=== PATIENT | female | born 1990 | race Two or more races ===

== ENCOUNTER 2017-02-11 05:50 | Day surgery (SDC) | payer BC ==
[2017-02-11] VITALS (13 sets, daily range): BP systolic 95–132; BP diastolic 52–81
[~2017-02-11] VITALS: Ht 154.9 cm; Wt 50.8 kg
--- NOTE | 2017-02-11 | History and Physical Report ---
DATE OF ADMISSION: 02/11/2017 HISTORY OF PRESENT ILLNESS: This is an 26-year-old female, 0, para 0 who presented to our office in December 2016, with complaints of low abdominal pain. After several workups and exam, the patient was diagnosed with the left side ovarian cyst. Ultrasound was performed, which proved diagnosis of left side ovarian cyst, size 6.7 x 6.0 x 5.1, complex with thick irregular nicolas and septations present. Right ovarian mass was cystic. Uterus was within normal limits. Problem was discussed with the patient and necessity of surgical procedure was explained. Procedure, pelviscopy was discussed with the patient in detail. All possible complications of bleeding, infection, injury of inner organs were explained. All the patient's questions were answered and the patient signed consent for surgery. GYNECOLOGICAL HISTORY: Menarche age 12, every 28 to 30 days, last menstrual period two weeks ago normal. She denies pelvic inflammatory disease. She denies STDs. Pap smear done, class I. PREVIOUS MEDICAL HISTORY: She denies medical problems. She denies heart disease, lung disease, or liver disease. SOCIAL HISTORY: Tobacco, does not smoke. Alcohol, does not drink. HOSPITALIZATIONS: None. REVIEW OF SYSTEMS: Noncontributory besides complaints mentioned above. PHYSICAL EXAMINATION: GENERAL: A well-developed and well-nourished female, in no acute distress. VITAL SIGNS: Stable. SKIN: Normal color. No lesions. HEENT: Head, normocephalic and atraumatic. Ears, tympanic membranes intact. Eyes, pupils are reactive to light and accommodation. BREASTS: No masses. Nipples without discharge. LUNGS: Clear to percussion and auscultation. CARDIOVASCULAR: Heart rate is regular. S1 and S2. ABDOMEN: Soft and nontender. Bowel sounds present. Costovertebral angle is nontender. PELVIC: Revealed Bartholin, urethral, and Aucilla glands within normal limits. Vulva and vagina, no lesions. Cervix is closed. Uterus normal size, position, and shape. Adnexa, left adnexa with approximately 7 cm mass, tender. Right adnexa, nontender, no masses. LABORATORY DATA: Blood tests, WBC 7.6, RBC 4.5, hemoglobin 13.9. Blood type AB positive. test negative. Potassium 3.9, sodium 139. PT 11.9, PTT 26.5, INR 1.1. IMPRESSION: Left adnexal mass. PLAN: Pelviscopy. Florina Torres M.D. DR: Julio JOB#: [id number] CC:
[2017-02-11] MEDS ORDERED: NKM (06:34)
[2017-02-11] MEDS ORDERED: cefOXitin Sod 2 GM in D5W 110 ML IVPB ONE (07:00)
[2017-02-11] MEDS ORDERED: Ropivacaine 5mg/ml Vial 20ml INJ ONE (07:25)
[2017-02-11] MEDS ORDERED: Sterile Water Irrig 1000ml IRRIG ONE (07:30)
[2017-02-11] MEDS ORDERED: LR 1000ml ONE (07:30)
[2017-02-11] MEDS ORDERED: fentaNYL 100 mcg/2 mL IV ONE (07:30)
[2017-02-11] MEDS ORDERED: NS Irrig 1000ml ONE (07:30)
[2017-02-11] MEDS ORDERED: Zemuron 50mg/5ml Inj IV ONE (07:30)
[2017-02-11] MEDS ORDERED: Propofol 10mg/ml 20ml IV ONE (07:30)
--- NOTE | 2017-02-11 07:43 | Pre-Procedure Note/Attestation ---
Pre-Procedure Note/Attestation Complete Prior to Procedure Planned Procedure: left Procedure Narrative: VLP, Hysteroscopy, Left Ovarian Cystectomy, Vaporization of Endometriosis Indications for Procedure Pre-Operative Diagnosis: Chronic Pelvic Pain, Large Left ovarian cyst, menorrhagia Attestation I attest that I discussed the nature of the procedure; its benefits; risks and complications; and alternatives (and the risks and benefits of such alternatives ), prior to the procedure, with the patient (or the patient's legal marketing development representative). I attest that, if there was a reasonable possibility of needing a blood transfusion, the patient (or the patient's legal marketing development representative) was given the [place] Department [employer] Services standardized written summary, pursuant to the [place] Blood Safety Act ([place] Health and Safety Code # 1645, as amended). I attest that I re-evaluated the patient just prior to the surgery and that there has been no change in the patient's H&P, except as documented below:NONE KENNA BLACKWOOD Feb 11, 2017 07:43
--- NOTE | 2017-02-11 08:28 | Anethesia Preoperative Eval ---
Anesthesia Pre-op PMH/ROS General Date of Evaluation: Feb 11, 2017 Time of Evaluation: 07:00 Anesthesiologist: maria e ASA Score: ASA 1 Mallampati Score Class I : Soft palate, uvula, fauces, pillars visible Class II: Soft palate, uvula, fauces visible Class III: Soft palate, base of uvula visible Class IV: Only hard plate visible Mallampati Classification: Class I Allergies: Coded Allergies: No Known Allergies (Unverified , 02/10/17) Anesthesia Pre-op Phys. Exam Physician Exam Last Vital Signs Date Time Temp Pulse Resp B/P Pulse Ox O2 Delivery O2 Flow Rate FiO2 02/11/17 06:32 98.1 78 20 131/81 98 Room Air Anesthesia Pre-op A/P Labs Urine Test Test 02/11/17 05:00 Urine HCG, Qualitative Negative Gaviota Laboy MD Feb 11, 2017 08:28
[2017-02-11] MEDS ORDERED: Hydromorphone 0.5mg/0.5ml inj IVP PRN (08:30)
[2017-02-11] MEDS ORDERED: Ketorolac 30mg Inj IV PRN (08:30)
[2017-02-11] MEDS ORDERED: ProvayBlue 5mg/ml 10ml amp INJ ONE (09:00)
--- NOTE | 2017-02-11 09:36 | Brief Operative Note ---
Immediate Post Operative Note Operative Note Pre-op Diagnosis: Chronic Pelvic Pain, Large Left ovarian cyst, menorrhagia Procedure: VLP, Lysis of pelvic adhesions, enterolysis, Left Ovarian Cystectomy, hysteroscopy, ECC, EMC Post-op Diagnosis: same as pre-op - Pelvic adhesions Surgeon: Kenna Blackwood Documentation Liaison: Jessica Méndez Anesthesiologist: MD Benoit Anesthesia: general Specimen: yes - Left Ovar Cyst, Adhesions, EMC, ECC Complications: none Condition: stable Estimated Blood Loss: minimal Drains: none Implant(s) used?: No KENNA BLACKWOOD Feb 11, 2017 09:36
--- NOTE | 2017-02-11 09:42 | Immediate Post-Op Evaluation ---
Immediate Post-Op Evalulation Immediate Post-Op Evalulation Procedure: pelvicscopy hysteroscpy Date of Evaluation: Feb 11, 2017 Time of Evaluation: 09:42 Nausea: No Vomiting: No Hydration Status: adequate Given Within 1 Hr of Incision: Yes Gaviota Laboy MD Feb 11, 2017 09:42
[2017-02-11] MEDS ORDERED: Ketorolac 30mg Inj IV ONE (11:00)
--- NOTE | 2017-02-11 12:10 | 48 Hour Post Anesthesia Eval ---
Post Anesthesia Evaluation Procedure: pelvicscopy hysteroscpy Date of Evaluation: Feb 11, 2017 Time of Evaluation: 12:10 Nausea: No Vomiting: No Hydration Status: adequate Follow-up care needed: N/A Gaviota Laboy MD Feb 11, 2017 12:10
--- NOTE | 2017-02-11 12:30 | Operative Note - Dictated ---
DATE OF OPERATION: 02/11/2017 PREOPERATIVE DIAGNOSES: 1. Severe chronic pelvic pain increasing over the last several weeks. 2. Large left ovarian cyst. 3. Menorrhagia. PROCEDURE PERFORMED: Video hysteroscopy with dilatation and curettage with endocervical curettage. Video laser pelviscopy with lysis of pelvic adhesions. Video laser pelviscopy with enterolysis and video laser pelviscopy with left ovarian cystectomy. SURGEON: Ganesh Torres M.D. ORACLE ENDECA CONSULTANT: Jessica Méndez M.D. ANESTHESIOLOGIST: Dr. Gaviota Laboy. APPROXIMATE BLOOD LOSS: Minimal. PROCEDURE IN DETAIL: After all the appropriate consents were signed, the patient was brought to the operating room, placed on table in supine position. General endotracheal anesthesia was induced without complication. The patient was then placed in a dorsal lithotomy position. Perineum, vagina, and abdomen were prepped and draped in the usual fashion for the procedure. The patient was examined under anesthesia. Uterus appeared to be severely anteverted on examination. The adnexa was full on the left side. On the right side, no adnexal masses could be palpated. The procedure then continued with video hysteroscopy with the cervix was dilated. Video hysteroscope was introduced and uterine cavity was visualized. Photographs were taken and the cavity did not appear to have any polypoid lesions or submucosal fibroids. At this time, endocervical curettage was performed and was followed by endometrial curettage, both specimens submitted to pathology. The procedure then continued with the abdominal portion where umbilical incision was made. Veress needle was advanced. The abdomen was insufflated to 15 mmHg. The trocar was then placed atraumatically and pelvic contents were visualized with laparoscope. Two additional trocars were placed in the left lower quadrant and right in midline. The procedure then continued with the evaluation of the pelvis. The uterus and the pelvic structures contained multiple inflammatory excrescences. There were multiple adhesions from the bowel to the uterus and to the ovaries bilaterally. There was a large adhesion from the colon and omentum to the left ovary that was severely enlarged. The omentum was adhesiolysed as well as enterolysis was undertaken before the ovary could be well visualized. Once the adhesiolysis and enterolysis were performed, the ovary was elevated and the cystic structure was entered with the CO2 laser. The laser was used to fully enter the capsule and then suction security compliance specialist was used to evacuate the fluid from the capsule. The capsule was now grasped and traction countertraction was performed removing the cyst capsule in its entirety. The capsule was then extracted through the umbilical incision. The procedure continued with complete hemostasis of the ovarian defect on the left side. Both tubes were evaluated and were found to be within normal limits. The upper abdomen was examined. There did not appear to be any adhesions along the liver or along the pelvic and abdominal side nicolas. The appendix was also visualized and was apparently within normal limits and uninflamed and not dilated. At this time, the rest of the pelvis and abdomen were examined for endometriosis. There did not appear to be any endometriosis lesions. At this time, again complete hemostasis was achieved along the ovarian defect on the left and all the adhesiolysis site along the uterus and ovary bilaterally. The pelvis was thoroughly irrigated with multiple liters of fluid and the procedure then continued with closure of the pelvic punctures after the trocars were removed under direct visualization with the laparoscope. The laparoscope was removed last with the umbilical puncture being completely hemostatic. The incisions were closed with 0 Vicryl suture at the fascia layer and Steri-Strips and benzoin at the skin layer. The patient was awakened from general anesthesia after being placed in the supine position and was transferred to the recovery room in excellent condition. Ganesh Torres M.D. DR: JOSE MANUEL JOB#: [id number] CC:
[2017-02-11] MEDS ORDERED: Tylenol #3 tab (300mg/30mg) ORAL PRN (13:01)
[2017-02-11] MEDS ORDERED: HYDROmorphone 1mg/ml Carpuject SUBQ PRN (13:01)
[2017-02-11] MEDS ORDERED: D5 1/2NS 1,000 ML IV SCH (13:01)
[2017-02-11] MEDS ORDERED: Norco 5mg/325mg tab ORAL PRN (13:01)
== END 2017-02-11 13:10 | disposition home or self-care (01) ==
LOC: SUR 05:50
DX: N83.202 Unspecified ovarian cyst, left side (principal); N92.0 Excessive and frequent menstruation with regular cycle; N73.6 Female pelvic peritoneal adhesions (postinfective)
CPT/HCPCS: 58558; 58662; 81025; J0690; J1170; J1885; J2704; J2795; J3010; J7120; 94003; 94150